=== PATIENT | male | born 2000 | race Two or more races ===

== ENCOUNTER 2024-01-10 16:42 | Emergency (ER) | payer MEDICAID, SELFPAY ==
--- NOTE | ~2024-01-10 | XR_ITS ---
EXAMINATION: XR LUMBOSACRAL SPINE CLINICAL INFORMATION: back pain COMPARISON: None available. TECHNIQUE: Three views of the lumbosacral spine. FINDINGS: There are 5 nonrib-bearing lumbar vertebrae. Spinal alignment is anatomic in the sagittal projection. The vertebral bodies demonstrate preserved stature. There is mild narrowing of the L5-S1 intervertebral disc space. There is minimal facet arthropathy at this level. There is no acute fracture. The sacroiliac joints are intact. XR/XR lumbar spine 2-3V IMPRESSION: No acute osseous lumbar spine abnormality. Mild degenerative disease at L5-S1. Electronically signed by: Eusebio Quezada DO 01/10/2024 07:20 PM [facility] [place]
[2024-01-10 17:10] VITALS: BP 145/79; PULSE 99; RESP 16; TEMP 36.9; O2SAT 98; BMI 25.8
[2024-01-10 21:15] VITALS: BP 124/62; PULSE 87; RESP 20; TEMP 37.1; O2SAT 98
--- NOTE | 2024-01-10 23:17 | ED.GENADULT ---
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 Patient reports worsening low back pain for the last few weeks He denies any specific injury, heavy lifting or twisting. He denies any strenuous activity He denies any numbness, tingling. Patient reports his pain is worse with movement. He just recently relocated to the area from the [place] few weeks ago as well. He denies any numbness, tingling Related Data Previous Rx's ?Medication ?Instructions ?Recorded naproxen 500 mg tablet 500 mg PO BID #20 tabs 01/10/24 Allergies Allergy/AdvReac Type Severity Reaction Status Date / Time No Known Allergies Allergy Verified 01/10/24 17:10 Review of Systems Constitutional: Constitutional: Denies body ache(s), Denies chills and Denies fever(s) ENT: Denies vertigo and Denies dizziness Cardiovascular: Cardiovascular: Denies chest pain and Denies dyspnea Respiratory: Respiratory: Denies cough and Denies dyspnea Gastrointestinal: Gastrointestinal: Denies abdominal pain Musculoskeletal: Musculoskeletal: Reports back pain, Denies arthralgias, Denies joint swelling, Denies limited range of motion, Denies muscle cramps, Denies muscle weakness, Denies radiating pain into limb and Denies stiffness Integumentary/Breasts: Skin/Breast: Denies rash Neurologic: Denies vertigo and Denies dizziness Psychiatric: Psychiatric: Denies anxiety PMFSH Social History Social History Advance Directives: No Advance Directives Information Provided: No Do you have a plan to hurt others: No Plan Physical Exam ED Vital Signs: Vital Signs - 24 hr 01/10/24 17:10 01/10/24 21:15 Temperature 98.5 F 98.7 F Pulse Rate 99 87 Respiratory Rate 16 20 Blood Pressure 145/79 H 124/62 Pulse Oximetry 98 98 Oxygen Delivery Method Room Air Room Air BMI result Body Mass Index 25.8 Const General: healthy appearing, comfortable, no acute distress, alert and awake Nutritional Appearance: well nourished Orientation/consciousness: patient oriented x3 HENMT Head: Yes normocephalic and Yes atraumatic Eyes Eyelids: Yes eyelids normal Conjunctivae: conjunctivae normal Sclerae: sclerae normal Corneas: corneas normal Pupils: Equal, round and reactive pupils present EOM: EOMs intact bilaterally Neck Neck: Yes full ROM Resp Effort & Inspection: normal respiratory effort, able to speak in complete sentences and not labored GI Inspection: No distended Palpation (GI): Soft to palpation, not firm, nontender, no guarding and not rigid Back/Spine/Pelvis Other: Tenderness across the lumbosacral region. No step-offs or deformities. Negative straight leg raise. Skin General skin exam: elasticity normal Neuro General: patient oriented x3 Cranial nerves: Yes Equal, round and reactive pupils present and Yes Bilaterally intact EOM present Cognition (Neuro): normal cognition Motor exam (neuro): 5/5 motor strength present throughout Extrem Other: Moving all extremities well without any obvious deformities Medical Decision Making Medical Decision Making MDM Narrative: 23-year-old male presents for evaluation of lower back pain. He denies any specific injury. His pain is most consistent with muscle strain/radiculopathy. His x-ray shows mild degenerative changes. He has no warning signs for cauda equina syndrome. Patient be given symptomatic care with naproxen and will follow up with the PCP Differential Diagnosis Differential Diagnoses: The differential diagnosis associated with the presentation includes Low back pain Radiculopathy Sciatica Muscle strain Independent Interpretation I performed an independent interpretation of an: Plain X-Ray (Agree with Radiology interpretation, mild stool burden as well) Radiology Impression Discussion of test interpretation with radiology: I have reviewed the radiologist's reading. Radiologist Impression: COMPARISON: None available. TECHNIQUE: 2 views of the chest were obtained. FINDINGS: The cardiomediastinal silhouette is within normal limits. The lungs are well expanded. There is no focal consolidation, edema, or effusion. No pneumothorax. No acute osseous abnormality. Multilevel thoracic spine degeneration XR/XR chest 2V IMPRESSION: No evidence of acute pulmonary process. Electronically signed by: Sadiq Wasserman MD 01/10/2024 08:16 PM [facility] [place] Discharge Plan Discharge Clinical Impression: Low back pain Patient Disposition: Home, Self-Care Instructions: Acute Low Back Pain (ED) Additional Instructions: Your x-ray showed some arthritis in your lower back. Take naproxen twice daily. Avoid heavy lifting or strenuous activity Prescriptions: New naproxen 500 mg tablet 500 mg PO BID Qty: 20 0RF Print Language: Libyan
[2024-01-11 02:44] VITALS: BP 129/58; PULSE 79; RESP 20; TEMP 36.9; O2SAT 97
== END 2024-01-11 00:05 | disposition home or self-care (01) ==
PROVIDERS: Emergency Provider Emergency Medicine
DX: M54.50 Low back pain, unspecified (principal)
CPT/HCPCS: 72100; 99283; 99284